=== PATIENT | female | born 1960 | race Caucasian/White ===

== ENCOUNTER 2022-01-31 16:50 | Emergency (ER) | payer BC ==
[~2022-01-31] VITALS: Ht 160 cm; Wt 72.6 kg
[2022-01-31] MEDS ORDERED: ONDANSETRON 4 MG/2 ML VIAL ONE (17:07)
[2022-01-31] MEDS ORDERED: KETOROLAC TROMETHAMINE 30 MG INJ ONE (17:07)
[2022-01-31] MEDS ORDERED: HYDROMORPHONE 1 MG/1 ML DISP.SYRIN ONE (17:07)
[2022-01-31] MEDS: ONDANSETRON 4 MG/2 ML VIAL IV ONE (17:11)
[2022-01-31] MEDS: KETOROLAC TROMETHAMINE 30 MG INJ IVP ONE (17:11)
[2022-01-31] MEDS: HYDROMORPHONE 1 MG/1 ML DISP.SYRIN IV ONE (17:12)
[2022-01-31 17:32] LABS: HEMATOCRIT 37.8 % (31.2-41.9); MEAN CORPUSCULAR HEMOGLOBIN 26.8 uug (24.7-32.8); MEAN CORPUSCULAR VOLUME 79.5 fL (75.5-95.3); PLATELET COUNT (AUTO) 273 K/uL (179-408)
[2022-01-31 17:34] LABS: *BILIRUBIN,URIN NEGATIVE (NEGATIVE); *BLOOD, URINE 1+ (NEGATIVE); *CLARITY,URINE CLEAR (CLEAR); *COLOR,URINE YELLOW (YELLOW); *KETONES,URINE NEGATIVE (NEGATIVE); *UROBILINOGEN,URINE 0.2 E.U./dl (NORMAL); LEUKOCYTE ESTERASE ,URINE NEGATIVE (NEGATIVE); NITRITE, URINE NEGATIVE (NEGATIVE); PH,URINE 6.5 (5.0-8.0); UGLUCOSE NEGATIVE (NEGATIVE)
[2022-01-31] MEDS ORDERED: OXYC-133 PO ×3 (18:30→18:41)
--- NOTE | 2022-01-31 18:57 | NUR ---
Patient discharged to home in stable condition. Written and verbal after care instructions given. Patient verbalizes understanding of instructions. Stressed follow up or return to ER for worsening s/s.pt walks in steady gait. pt is going home with friend.
[2022-01-31 18:58] VITALS: BP 119/61
[2022-01-31 22:21] LABS: BACTERIA,URINE NONE SEEN /HPF (NONE SEEN); SQUAMOUS EPITHELIAL CELL,UR FEW /HPF (NONE SEEN); WBC,URINE 0-3 /HPF (0-3)
== END 2022-01-31 18:58 | disposition home or self-care (01) ==
LOC: ER 16:52
DX: N20.0 Calculus of kidney (principal); Z79.899 Other long term (current) drug therapy
CPT/HCPCS: 36415; 80048; 81001; 85025; 96374; 96375; 99284; J1170; J1885; J2405; A4663